=== PATIENT | male | born 1990 | race Caucasian/White ===

== ENCOUNTER 2025-05-25 14:00 | Emergency (ER) | payer OTHER, SELFPAY ==
[2025-05-25 14:04] VITALS: BP 170/97
--- NOTE | 2025-05-25 14:21 | ED.GENMED ---
History of Present Illness
<Letha Rodriguez MD, Resident - Last Filed: 05/25/25 16:10>
General
Chief Complaint: Anxiety
Source: patient
Time Seen by Provider: 05/25/25 14:13
History of Present Illness
History of Present Illness:
35-year-old male with past medical history of bipolar disorder, IBS, ADHD, anxiety, depression presents to the ER for severe anxiety and increased urinary frequency. He has had increased urination since last December and was worked up by Dr. Jiménez. He
did not find any cause and suspected it was an underlying psych component. Over the past two weeks, he has been feeling increasingly anxious and today he was unable to go to work. The increased urinary frequency is preventing him from taking walks
which is what helped him sooth his anxiety previously. He does have a history of 2 suicide attempts, but currently denies any thoughts of harming himself or others. He does endorse some abdominal discomfort and lots of gas. He denies any dysuria,
increased thirst, chest pain, heart palpitations, dizziness, lightheadedness, nausea, vomiting, numbness, tingling, weakness. He does endorse diarrhea however he has a history of IBS and this is not atypical for him. His parents state he has been
using 30-40 roles of toilet paper a week.
Past History
<Letha Rodriguez MD, Resident - Last Filed: 05/25/25 16:10>
Past History
ED Past Medical History: Other (bipolar disorder, IBS, AHDH, anxiety, depression)
ED Past Surgical History: None
Social History
Tobacco: Non-smoker
Alcohol: None
Drug: None
Living: with family
Employment: Employed
Family History
Family History: Other (Mental health disorders )
Review of Systems
<Letha Rodriguez MD, Resident - Last Filed: 05/25/25 16:10>
Review of Systems
Allergies reviewed?: Yes
Constitutional: Reports no symptoms
EENT: Reports no symptoms
Respiratory: Reports no symptoms
Cardiac: Reports no symptoms
ABD/GI: Reports diarrhea
: Reports frequency
Musculoskeletal: Reports no symptoms
Skin: Reports no symptoms
Neurological: Reports no symptoms
Endocrine: Reports polyuria
Hematologic/Lymphatic: Reports no symptoms
Psychiatric: Reports anxiety
Phy Exam
<Letha Rodriguez MD, Resident - Last Filed: 05/25/25 16:10>
Physical Exam
Physical Exam:
General: Capron anxious, sitting up in bed
Head: Atraumatic
Cardiac: Regular S1, S2, no murmurs
Respiratory: Clear breath sounds bilaterally
Abdomen: Soft, non-tender, nondistended, normal bowel sounds
Neurologic: Nonfocal
Extremities: No peripheral edema
Psych: Anxious
Course
<Letha Rodriguez MD, Resident - Last Filed: 05/25/25 16:10>
Orders/Labs/Results
Orders:
Orders
05/25/25 14:09
Crisis Consult Urgent
Reason for Consult: anxiety
05/25/25 14:39
Bedside Glucose- Treatment ONCE
05/25/25 14:46
Urinalysis Reflex To Culture Urgent
Date Specimen was Collected: 05/25/25
Time Specimen was Collected: 14:42
Urine Microscopic Reflex Cult Urgent
05/25/25 15:33
Dicyclomine [Bentyl] 20 mg PO NOW STA
Abnormal Lab Results
05/25/25 05/25/25
14:46 14:49
Ur Occult Blood Reflex 4+ A
(Negative)
Urine RBC 50-60 A /HPF
(0-2)
Urine Bacteria (Reflex) Few A
(Negative)
Urine Albumin (Reflex) 2+ A
(Neg - Trace)
POC Glucose 147 H mg/dl
(70-99)
Vital Signs
Initial and Last Documented VS:
Initial Vital Signs
Temp Pulse Resp BP Pulse Ox
97.8 F 53 18 170/97 97
05/25/25 14:04 05/25/25 14:04 05/25/25 14:04 05/25/25 14:04 05/25/25 14:04
Last Documented Vital Signs
Temp Pulse Resp BP Pulse Ox
97.8 F 53 18 170/97 97
05/25/25 14:04 05/25/25 14:04 05/25/25 14:04 05/25/25 14:04 05/25/25 14:23
<Kimberli Fung MD - Last Filed: 05/25/25 15:43>
Orders/Labs/Results
Orders:
Orders
05/25/25 14:09
Crisis Consult Urgent
Reason for Consult: anxiety
05/25/25 14:39
Bedside Glucose- Treatment ONCE
05/25/25 14:46
Urinalysis Reflex To Culture Urgent
Date Specimen was Collected: 05/25/25
Time Specimen was Collected: 14:42
Urine Microscopic Reflex Cult Urgent
05/25/25 15:33
Dicyclomine [Bentyl] 20 mg PO NOW STA
Abnormal Lab Results
05/25/25 05/25/25
14:46 14:49
Ur Occult Blood Reflex 4+ A
(Negative)
Urine RBC 50-60 A /HPF
(0-2)
Urine Bacteria (Reflex) Few A
(Negative)
Urine Albumin (Reflex) 2+ A
(Neg - Trace)
POC Glucose 147 H mg/dl
(70-99)
Vital Signs
Initial and Last Documented VS:
Initial Vital Signs
Temp Pulse Resp BP Pulse Ox
97.8 F 53 18 170/97 97
05/25/25 14:04 05/25/25 14:04 05/25/25 14:04 05/25/25 14:04 05/25/25 14:04
Last Documented Vital Signs
Temp Pulse Resp BP Pulse Ox
97.8 F 53 18 170/97 97
05/25/25 14:04 05/25/25 14:04 05/25/25 14:04 05/25/25 14:04 05/25/25 14:23
<Letha Rodriguez MD, Resident - Last Filed: 05/25/25 16:10>
MDM/Problems Addressed
Differential Diagnosis Includes:
Anxiety, manic episode, UTI, SIADH, diabetes, kidney stone, IBS, colitis
MDM/Problems Addressed:
Assessment: 35-year-old male with past medical history of bipolar disorder, anxiety, IBS presents to the ER for anxiety and increased urinary frequency.
UA unremarkable for signs of acute infection however hematuria noted. He was previously worked up extensively by urologist who did not find anything. Recommended follow-up with urology for further evaluation of hematuria. He denies any back pain
or groin pain.
Spot blood glucose 147 which is not high enough to diagnose diabetes. He had lab work about 6 months ago with his PCP which was unremarkable according to family.
Upon later conversation, patient admitted he has not been going diarrhea but he still uses tissue paper and he feels bad about doing that. Highly suspect an OCD/psych component. Recommend follow-up with psychiatrist for further medical management
and possible evaluation for OCD. Crisis also saw patient and spoke to family about additional support available in the outpatient setting.
Regarding excessive gas, recommend follow-up with GI. Offered dicyclomine however patient's parents stated that has not been helpful in the past and were not interested in taking at this time.
<Letha Rodriguez MD, Resident - Last Filed: 05/25/25 16:10>
*Pulse Oximetry
SaO2: 97
Oxygen Mode of Delivery: Room air
Patient hypoxic: no
*Critical Care Note
Total Time (30-74mins, 75-104mins- exclusive of procedures): Not Applicable
Data Reviewed
Source: patient and family
Prescriptions/Medications Considered But Not Given:
Considered CT, however upon further questioning patient stated he did not have any abdominal pain, back pain or groin pain, just lots of gas. He states he is still having bowel movements daily, but diarrhea has gone away recently. His parents asked
him why he uses 30-40 roles of toilet paper a week and he apologized and stated 'that's my bad.' Low clinical concern for acute abdominal etiology.
ED Attending Note
<Letha Rodriguez MD, Resident - Last Filed: 05/25/25 16:10>
-
Portions of this chart may have been created with voice recognition software.� Occasional wrong word or��sound alike� substitutions may have occurred due to the inherent limitations of voice recognition software.
<Kimberli Fung MD - Last Filed: 05/25/25 15:43>
ED Attending Note
Patient seen and examined by attending physician: Yes
I performed a history and physical exam of patient and discussed management with resident, I reviewed resident's note and agree with documented findings and plan of care.: Yes
ED Attending Note:
I have seen and evaluated the patient with a [id number] encounter. I have spoken to the [resident] and involved in the medical history, the physical exam, medical decision making.
Evaluation and management service: agree unless noted differently below.
Results interpretation: agree unless noted differently below.
Patient is a 35-year-old male with history of anxiety, bipolar disorder presenting to the emergency department with anxiety and frequent urination. Patient states that he has had anxiety for many years. However his anxiety has worsened in the past
few weeks. He did see psychiatry yesterday and was started on some medications. However they are still having difficulty with controlling it. They did call [facility] who told him to come here for further evaluation. Regarding
patient's urinary problems has been having it for many years. Has seen urology and had a full medical workup without any clear diagnoses. No fevers chills. No dysuria. No hematuria. No abdominal pain. No back pain.
GENERAL: in no acute distress
HEENT: normocephalic, extraocular movements intact, moist oral mucosa
NECK: normal inspection
RESPIRATORY: no respiratory distress, clear to auscultation bilaterally
CARDIOVASCULAR: regular rate and rhythm
ABDOMEN/: soft, non-distended, non-tender to palpation, no rebound or guarding
EXTREMITIES: non-tender, no edema/swelling
NEUROLOGIC: awake and alert, moves all extremities
Psych: Alert and oriented x 3, jumpy, speech normal not pressured, coherent thought process, not tangential, not currently suicidal or homicidal, cooperative and communicating, no active auditory or visual hallucinations, good insight and judement
SKIN: warm
35-year-old man presenting to the emergency department with increased urination and anxiety. On arrival vitals are notable for hypertension. Exam is otherwise reassuring. Regarding patient's urinary frequency will rule out UTI and obtain
Accu-Chek for diabetes screening. History exam not consistent with kidney stone or pyelonephritis or STI. Regarding patient's anxiety patient does not meet any criteria for involuntary placement and he is not a risk to himself or others. Patient
does not want any involuntary placement at this time and patient's parents at bedside are in agreement. Will discuss with crisis for further evaluation.
Crisis recommended outpatient treatment. To provide resources. He does have hematuria. He says he painless hematuria. Discussed with family. They will do outpatient urology follow-up.
Discharge Plan
Departure
Patient Disposition: Home (Routine Discharge)
Date of Disposition: 05/25/25
Time of Disposition: 15:37
Patient with high blood pressure during this ER visit?: Yes
Discharge Problem:
Anxiety, Increased urinary frequency, Hematuria
Instructions: Generalized Anxiety Disorder (DC)
Activity Restrictions/Additional Instructions:
Please follow up with psychiatry for further evaluation.
Please follow up with urology for evaluation of hematuria.
Interventions
Interventions:
*Risk Screen - Suicide Last Done: 05/25/25 14:04
*General Assessment Last Done: 05/25/25 14:04
*Neglect/Abuse Screening Last Done: 05/25/25 14:04
*ED- Fall Risk Assessment Last Done: 05/25/25 14:23
*ED COVID-19 Vaccine History Last Done: 05/25/25 14:23
*ED Influenza Vaccine History Last Done: 05/25/25 14:23
*Nursing Disposition Last Done: 05/25/25 15:57
ED-Psychological Assessment Last Done: 05/25/25 14:23
Discharge Date and Time
Print Language: UPPER SORBIAN
[2025-05-25 14:23] VITALS: BMI 28.2
[2025-05-25 14:52] LABS: Glucose - Point of Care 147 mg/dl (70-99)
[2025-05-25 15:23] LABS: Urine Character Clear (Clear); Urine Red Blood Cell 50-60 /HPF (0-2); Urine Squamous Cell 0-2 /LPF (Few); Urine White Cell 0-2 /HPF (0-5)
== END 2025-05-25 16:11 | disposition home or self-care (01) ==
LOC: EMR 14:00
PROVIDERS: EMERGENCY PHYSICIAN Student in an Organized Health Care Education/Training Program
DX: F41.9 Anxiety disorder, unspecified (principal); R35.0 Frequency of micturition; R31.9 Hematuria, unspecified
CPT/HCPCS: 99283; 81003; 81015; 82962